=== PATIENT | male | born 1970 | race Two or more races ===

== ENCOUNTER 2017-03-18 05:56 | Observation (INO) | payer BC ==
--- NOTE | 2017-03-17 22:03 | Pre-Procedure Note/Attestation ---
Pre-Procedure Note/Attestation Complete Prior to Procedure Planned Procedure: not applicable Procedure Narrative: 1. Septoplasty 2. Uvulopalatopharyngoplasty 3. Partial reduction base of tongue stage 1. Indications for Procedure Pre-Operative Diagnosis: 1. Nasal septal deviation 2. Hypertrophied soft palate and uvula 3. Hypertrophied base of tongue. Attestation I attest that I discussed the nature of the procedure; its benefits; risks and complications; and alternatives (and the risks and benefits of such alternatives ), prior to the procedure, with the patient (or the patient's legal sales development representative). I attest that, if there was a reasonable possibility of needing a blood transfusion, the patient (or the patient's legal sales development representative) was given the [place] [facility] standardized written summary, pursuant to the [place] Blood Safety Act ([place] Health and Safety Code # 1645, as amended). I attest that I re-evaluated the patient just prior to the surgery and that there has been no change in the patient's H&P,, job # [id number]. Also medical clearance provided from outside -CÉSAR Solis Mar 17, 2017 22:03
[~2017-03-18] VITALS: Ht 203.2 cm; Wt 120.2 kg
[2017-03-18] VITALS (27 sets, daily range): BP systolic 114–255; BP diastolic 57–157
[~2017-03-18 05:56] MED LIST: Dexamethasone 4mg/ml vial IVP ONE
[2017-03-18] MEDS ORDERED: OMEGA-3100 M1 PO (06:23)
[2017-03-18] MEDS ORDERED: arnica PO (06:26)
[2017-03-18] MEDS ORDERED: cholesterol pill PO (06:26)
--- NOTE | 2017-03-18 06:30 | Pre-op HX & Phy Repo 2 SIG ---
DATE OF ADMISSION: 03/18/2017 DATE OF SURGERY: 03/18/2017 PLANNED SURGERY: Partial reduction at base of tongue, uvulopalatopharyngoplasty, and septoplasty. The patient will be staying for approximately 23 hours since he has a history of sleep apnea. PAST MEDICAL HISTORY: Significant for deviated nasal septum, sleep apnea, hypertrophy at base of tongue, in the past he had otalgia, cholesterol issues, allergic rhinitis, and low testosterone. Also, chronic sinusitis. PAST SURGICAL HISTORY: Nasal fracture with septoplasty, hand surgery x5, and rotator cuff x3. MEDICATIONS: He takes atorvastatin, Aromasin, Flonase, Concerta, Viagra or Cialis, and testosterone. ALLERGIES: He is allergic to penicillin for which he has anaphylaxis. SOCIAL HISTORY: Single, no children. Denies alcohol and drugs. 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 FAMILY HISTORY: Cardiovascular disease, diabetes type 1, and asthma. PHYSICAL EXAMINATION: VITAL SIGNS: He is 68 inches and 285 pounds. BMI 31.31. Blood pressure 120/80, temperature 98.6 degrees, pulse 74, and respiratory rate is 14, but this was on his last visit, which was his preoperative, which was on 03/08/2017. HEENT: Head: Normocephalic. Ears: Positive light reflex. Normal canals. Nose, septal deviation. Hypertrophied turbinates. Mild hypertrophied soft palate, uvula, and base of tongue. NECK: Normal. ASSESSMENT: He is a candidate for septoplasty, uvulopalatopharyngoplasty, and partial reduction of base of tongue stage PLAN: He does have Zithromax and Chatom for postoperative. He has medical clearance from his primary care doctor, Dr. Guillermo including History and Physical, EKG, and chest x-ray, which is pending. Venkat Mchugh M.D. DR: Bhavana JOB#: [id number] CC: DARRYL
[2017-03-18] MEDS ORDERED: Surgicel 4in x 8in TOPIC ONE (07:02)
[2017-03-18] MEDS ORDERED: Bupivacaine w/Epi 0.5% 30ml Vial INJ ONE (07:02)
[2017-03-18] MEDS ORDERED: Saline Nasal Gel (Ayr) NASAL ONE (07:02)
[2017-03-18] MEDS ORDERED: Cocaine 4% Vial TOPIC ONE (07:02)
[2017-03-18] MEDS ORDERED: Lidocaine 1% 10mg/ml/Epi 0.005mg/ml 30ml vial INJ ONE (07:03)
[2017-03-18] MEDS ORDERED: Zemuron 50mg/5ml Inj IV ONE (07:30)
[2017-03-18] MEDS ORDERED: LR 1000ml ONE (07:30)
[2017-03-18] MEDS ORDERED: Midazolam 2mg/2ml Inj ONE (07:30)
[2017-03-18] MEDS ORDERED: NS Irrig 1000ml ONE (07:30)
[2017-03-18] MEDS ORDERED: fentaNYL 100 mcg/2 mL IV ONE (07:30)
[2017-03-18] MEDS ORDERED: Sterile Water Irrig 1000ml IRRIG ONE (07:30)
[2017-03-18] MEDS ORDERED: Propofol 10mg/ml 20ml IV ONE (07:30)
--- NOTE | 2017-03-18 08:17 | Brief Operative Note ---
Immediate Post Operative Note Operative Note Pre-op Diagnosis: 1. Nasal septal deviation 2. Hypertrophied soft palate and uvula 3. Hypertrophied base of tongue. Procedure: 1. Septoplasty 2 Uvulopalatopharyngoplasty 3. Reduction base of tongue stage 1 Post-op Diagnosis: same as pre-op Surgeon: William Magallon Nurse Clinical: none Additional Surgeons: none Anesthesiologist: Stacey Anesthesia: general Specimen: yes - Uvula Complications: none Condition: stable Estimated Blood Loss: volume - 10 cc Packing: Stamberger nasal gel in right nostril Implant(s) used?: No CÉSAR MAGALLON Mar 18, 2017 08:17
[2017-03-18] MEDS ORDERED: AZITHROMYCIN250 MG ORAL (08:24)
[2017-03-18] MEDS ORDERED: NORCO 5-325 TA1 EAC1 ORAL (08:25)
--- NOTE | 2017-03-18 08:26 | Discharge Instructions ---
Discharge Instructions Discharge Instructions Follow up with: Dr. Magallon next week at his office-pt has appt already Diet: regular Resume Normal Activity?: No Activity: light activity Pneumonia Vaccine: pt refused vaccine Influenza Vaccine (May to Oct): pt refused vaccine Return to Work/School on: Apr 01, 2017 Special Instructions pt has printed post op instructions which we have reviewed during his pre op visit. For Surgical Patients Dressing Care: may change Contact your physician for: bleeding, pain, tenderness, redness, swelling, yellowish discharge in the op. site For Congestive Heart Failure Reminder Report to your physician any weight gain of 5 pounds or more in one week. CÉSAR MAGALLON Mar 18, 2017 08:26
[2017-03-18] MEDS ORDERED: Albuterol ud Inhalation ONE ×2 (08:58→09:07)
[2017-03-18] MEDS: Albuterol ud Inhalation HHN ONE (09:07)
[2017-03-18] MEDS ORDERED: Morphine Sulfate 2mg/ml Inj IVP PRN (09:15)
[2017-03-18] MEDS ORDERED: Ketorolac 30mg Inj IV PRN (09:15)
--- NOTE | 2017-03-18 09:17 | Anethesia Preoperative Eval ---
Anesthesia Pre-op PMH/ROS General Date of Evaluation: Mar 18, 2017 Time of Evaluation: 07:00 ASA Score: ASA 1 Mallampati Score Class I : Soft palate, uvula, fauces, pillars visible Class II: Soft palate, uvula, fauces visible Class III: Soft palate, base of uvula visible Class IV: Only hard plate visible Mallampati Classification: Class I Allergies: Coded Allergies: PENICILLINS (Verified Allergy, Severe, Anaphylaxis, 03/17/17) since childhood Anesthesia Pre-op Phys. Exam Physician Exam Last Vital Signs Date Time Temp Pulse Resp B/P Pulse Ox O2 Delivery O2 Flow Rate FiO2 03/18/17 08:30 74 18 147/70 99 Simple Mask 6.0 03/18/17 08:20 97.3 Jose Manuel Hauser MD Mar 18, 2017 09:17
--- NOTE | 2017-03-18 09:17 | Immediate Post-Op Evaluation ---
Immediate Post-Op Evalulation Immediate Post-Op Evalulation Procedure: septoplasty Date of Evaluation: Mar 18, 2017 Time of Evaluation: 09:17 Nausea: No Vomiting: No Hydration Status: adequate Given Within 1 Hr of Incision: Yes Jose Manuel Hauser MD Mar 18, 2017 09:17
[2017-03-18] MEDS ORDERED: Albuterol ud Inhalation HHN ONE (09:24)
--- NOTE | 2017-03-18 09:40 | General Progress Note ---
Progress Note Progress Note ENT post op note S: I was called about 904-pt had a code blue-PAO2 down to 70 and Bradycardia to 48-felt he could not breathe. Unsure if any ST changes. According to nurse in post op and Anest-he was bagged fro 8 minutes. Was given 2 doses of Albuterol When I arrived he was stable hemodynamically and speaking. O:Nose-minimal bleeding Fiberoptic exam of larynx-no swelling Neck: no swelling A: laryngospasm or post anesthetic. He is stable now, speaking clearly without bleeding PAO2 now is 97% on room air P: Call placed to Dr. Daniel Byrd-his PMD regarding him seeing the pt post op re S/P Code Blue-VM left for him to callme. CÉSAR MAGALLON Mar 18, 2017 09:40
--- NOTE | 2017-03-18 09:45 | Operative Note - Dictated ---
DATE OF OPERATION: 03/18/2017 SURGEON: Venkat Mchugh M.D. SCRAP DEALER: None. ANESTHESIOLOGIST: Anesthesia: Oral endotracheal as well as 10 mL a 50:50 mixture 1% lidocaine with 1:100,000 epinephrine Marcaine 0.5% with 1:200,000 epinephrine. INDICATION FOR SURGERY: The patient with sleep apnea, nasal airway obstruction, hypertrophied soft palate and base of tongue. POSTOPERATIVE DIAGNOSIS: The patient with sleep apnea, nasal airway obstruction, hypertrophied soft palate and base of tongue. FINDINGS: The patient with sleep apnea, nasal airway obstruction, hypertrophied soft palate and base of tongue. PROCEDURE: 1. Uvulopalatopharyngoplasty. 2. Revision septoplasty. 3. Partial reduction in base of tongue. TECHNIQUE: The patient prepped and draped in the usual manner via oral endotracheal anesthesia, after a time-out was performed and all concurred as to the procedures and equipments indicated. Initially a McIvor mouth gag was placed in the mouth to inject the tongue and soft palate. I then also injected the septum with the aforementioned lidocaine, Marcaine, and epinephrine mixture and placed cocaine 4 mL four nasal pledgets, 2 on either nostril. I removed the uvula with scissors, part of the soft palate and then sewed these two back together with a 4-0 plain suture. Additionally radiofrequency wave with you setting of 6 coated with saline gel each time, middle of the soft palate and then 1 cm lateral for a total of 360 each time 10 seconds. I then turned my attention to the tongue and six sticks with a radiofrequency #45, coated with saline gel each time. They were placed three on either side of the midline of the tongue within 1 cm the circumvallate papillae to 1 cm, anterior circumvallate papillae in to 2 cm anterior. I then turned my attention to the septum, which was . Phong incision was made, the septal cartilage was removed after elevating bilateral flaps. Please note, this is a revision septoplasty. The was fractured and then put back to the midline with Ryne forceps. Please note that at the end of the case, I could stick my pinky finger through both nostrils although there was a little more room on the left side than the right, but at the beginning of the case, it was difficult to get a butter knife in the right nostril and no longer was the case at the end after moving it more towards the midline. The sponge and needle count was correct. ESTIMATE BLOOD LOSS: 10 mL. COUNTS: None. DRAINS: None. The patient was awake, alert, and stable in the operating room prior to the transfer to the recovery room where he was stable as well 10 minutes later. He is to stay overnight because of his history of sleep apnea and anesthesia. I suspect that he should be able to go home in the morning without any difficulty as usually the case. He has discharge medications as Z-Marcos as he is allergic to penicillin and [place]. Venkat Mchugh M.D. DR: JULIO JOB#: [id number] CC:
--- NOTE | 2017-03-18 09:57 | General Progress Note ---
Progress Note Progress Note ENT I spoke with Dr. Daniel Byrd-he is not on staff here-he agreed fro Dr Giang to see pt whom I have spoken with and will see the pt. Pt is stable now. CÉSAR MAGALLON Mar 18, 2017 09:57
[2017-03-18] MEDS: fentaNYL 100 mcg/2 mL IV PRN ×2 (10:42→11:04)
[2017-03-18] MEDS ORDERED: Norco 5mg/325mg tab ORAL PRN (13:00)
[2017-03-18] MEDS ORDERED: Hydromorphone 0.5mg/0.5ml inj IVP PRN (13:00)
[2017-03-18] MEDS: HYDROmorphone 1mg/ml Carpuject IVP PRN ×2 (13:30→17:12)
--- NOTE | 2017-03-18 15:32 | Consultation ---
Consult Note Consult Note Last 24 Hour Vital Signs Date Time Temp Pulse Resp B/P Pulse Ox O2 Delivery O2 Flow Rate FiO2 03/18/17 12:00 97.2 80 20 126/75 99 03/18/17 11:50 97.6 03/18/17 11:30 97.6 86 21 136/79 99 Simple Mask 6.0 03/18/17 11:15 87 22 131/77 99 Simple Mask 6.0 03/18/17 11:00 80 20 127/57 98 Simple Mask 6.0 03/18/17 10:55 79 15 130/57 97 Simple Mask 6.0 03/18/17 10:40 81 19 136/71 98 Simple Mask 6.0 03/18/17 10:30 82 20 127/85 98 Simple Mask 6.0 03/18/17 10:15 82 17 130/73 100 Simple Mask 6.0 03/18/17 10:00 97 19 136/76 99 Simple Mask 6.0 03/18/17 09:50 94 22 136/76 100 Simple Mask 6.0 03/18/17 09:40 91 18 142/89 97 Simple Mask 6.0 03/18/17 09:30 96 17 159/80 97 Simple Mask 10.0 03/18/17 09:20 92 16 160/91 97 Simple Mask 10.0 03/18/17 09:10 97 16 151/101 98 Simple Mask 10.0 03/18/17 09:00 106 22 174/97 96 Non-Rebreather 10.0 03/18/17 08:50 106 16 184/102 91 Non-Rebreather 10.0 03/18/17 08:48 106 18 182/157 94 Non-Rebreather 10.0 03/18/17 08:46 100 18 255/155 89 Ambu-Bag 15.0 03/18/17 08:41 48 18 184/128 68 Ambu-Bag 15.0 03/18/17 08:40 84 10 160/90 91 Simple Mask 6.0 03/18/17 08:30 74 18 147/70 99 Simple Mask 6.0 03/18/17 08:25 71 17 135/65 99 Simple Mask 6.0 03/18/17 08:20 97.3 64 15 133/63 96 Simple Mask 6.0 03/18/17 06:30 97.5 76 17 140/80 97 Room Air consult dictated Assessment/Plan Eric Giang MD Mar 18, 2017 15:32
[2017-03-18] MEDS: Azithromycin 250mg tab ORAL SCH (17:11)
[2017-03-19 03:57] VITALS: BP 119/71
[2017-03-19 08:00] VITALS: BP 116/69
[2017-03-19] MEDS: Azithromycin 250mg tab ORAL SCH (08:17)
[2017-03-19 08:43] LABS: BASOPHILS % (AUTO) 0.3 % (0.0-2.0); LYMPHOCYTES % (AUTO) 13.7 % (20.0-45.0); MEAN CORPUSCULAR HEMOGLOBIN 31.9 PG (27.0-31.0); MEAN CORPUSCULAR HGB CONC 34.5 G/DL (32.0-36.0); MEAN CORPUSCULAR VOLUME 92 FL (80-99); MEAN PLATELET VOLUME 10.4 FL (6.5-10.1); MONOCYTES % (AUTO) 3.9 % (1.0-10.0); NEUTROPHILS % (AUTO) 82.2 % (45.0-75.0); PLATELET COUNT 203 K/UL (150-450); RED BLOOD COUNT 5.17 M/UL (4.70-6.10); RED CELL DISTRIBUTION WIDTH 12.4 % (11.6-14.8); WHITE BLOOD COUNT 8.7 K/UL (4.8-10.8)
[2017-03-19 08:51] LABS: TROPONIN I < 0.30 ng/mL (<=0.30)
[2017-03-19 09:05] LABS: ALBUMIN/GLOBULIN RATIO 1.7 (1.0-2.7); CALCIUM 9.7 mg/dL (8.6-10.2); CREATININE 1.3 mg/dL (0.7-1.2); GLOMERULAR FILTRATION RATE 59.4 mL/min (>60); MAGNESIUM 2.1 mg/dL (1.7-2.5); PHOSPHORUS 4.9 mg/dL (2.5-4.8); POTASSIUM 4.8 mEQ/L (3.4-4.9); TOTAL PROTEIN 6.6 g/dL (6.6-8.7)
--- NOTE | 2017-03-19 10:58 | Discharge Summary ---
Discharge Summary Hospital Course Date of Admission Mar 18, 2017 at 09:16 Date of Discharge Admitting Diagnosis HPI Víctor, Ed is a 46 year old male who was admitted on Mar 18, 2017 at 09:16 for Hypertrhophy Basic Tongue,Septal Deviation Hospital Course Last 24 Hour Vital Signs Date Time Temp Pulse Resp B/P Pulse Ox O2 Delivery O2 Flow Rate FiO2 03/19/17 08:00 87 03/19/17 08:00 96.8 90 21 116/69 96 Room Air 03/19/17 04:02 85 03/19/17 03:57 98.1 78 19 119/71 95 Room Air 03/18/17 23:54 98.6 76 20 114/66 97 Room Air 03/18/17 23:35 74 03/18/17 20:00 Simple Mask 6.0 45 03/18/17 20:00 97 Simple Mask 6.0 45 03/18/17 19:59 98.8 89 21 133/81 99 Nasal Cannula 03/18/17 19:12 72 03/18/17 17:25 Simple Mask 7.0 55 03/18/17 17:25 95 Simple Mask 7.0 55 03/18/17 16:00 97.3 82 22 120/72 98 Room Air 03/18/17 16:00 76 03/18/17 12:00 82 03/18/17 12:00 97.2 80 20 126/75 99 03/18/17 11:50 97.6 03/18/17 11:30 97.6 86 21 136/79 99 Simple Mask 6.0 03/18/17 11:15 87 22 131/77 99 Simple Mask 6.0 03/18/17 11:00 80 20 127/57 98 Simple Mask 6.0 Physical Exam General: No acute distress, awake and alert HEENT: NCAT, sclera anicteric, PERRL, EOMI. Nasal packing intact. Neck: Supple, no significant jugular venous distention, Lungs: Good inspiratory effort, clear to auscultation bilaterally, no Wheeze or Rales. Heart: Regular rate and rhythm, normal S1/S2, no murmurs. Abdomen: soft, nontender, nondistended. Normoactive bowel sounds. Extremities: No Cyanosis , clubbing or edema. Neuro: A&O x 3, Able to move all extremities Skin: warm, no rashes or lesions Psych: Normal mood and affect Plan: Discharge Discharge Disposition Patient was discharged to home. Discharge Diagnoses: Discharge Instructions Discharge Instructions Follow up with: Dr. Mchugh next week at his office-pt has appt already Activity: light activity Pneumonia Vaccine: pt refused vaccine Influenza Vaccine (May to Oct): pt refused vaccine May Return to Work/School On: Apr 01, 2017 For Surgical Patients Dressing Care: may change Contact your physician for: bleeding, pain, tenderness, redness, swelling, yellowish discharge in the op. site Eric Giang MD Mar 19, 2017 10:58
[2017-03-19] MEDS ORDERED: Metoclopramide 10mg/2ml Inj IVP ONE (11:00)
--- NOTE | 2017-03-19 11:30 | Consultation ---
DATE OF CONSULTATION: 03/18/2017 NOTE: INCOMPLETE DICTATION CONSULTING PHYSICIAN: Eric Giang M.D. REQUESTING PHYSICIAN: Venkat Mchugh M.D. REASON FOR CONSULTATION: Postoperative complications with Code Blue. HISTORY OF PRESENT ILLNESS: This is a 46-year-old gentleman with a past medical history significant for obstructive sleep apnea as well as dyslipidemia, hypogonadism with history of nasal fracture with septoplasty, hand surgery x5, and rotator cuff surgery x3, history of deviated nasal septum, hypertrophy of the base of the tongue, allergic rhinitis, and chronic sinusitis. The patient presented to the hospital for partial reduction of the base of the tongue with uvulopalatopharyngoplasty and septoplasty. Postoperatively, it is complicated with the patient becomes unresponsive and Code Blue due to the desaturation as well as bradycardia. The patient was subsequently admitted to the hospital for further evaluation and by Dr. Venkat Mchugh and Internal Medicine consultation and monitoring the patient. PAST MEDICAL HISTORY/PAST SURGICAL HISTORY: As above. He has hypogonadism, dyslipidemia, deviated nasal septum, obstructive sleep apnea, hypertrophic at the base of the tongue with history of otalgia, allergic rhinitis, hypogonadism, nasal fracture with septoplasty, hand surgery x5, and rotator cuff surgery x2. MEDICATIONS: Significant for atorvastatin, Aromasin, Flonase, Concerta, Viagra, Cialis, testosterone injection, and omega-3. ALLERGIES: Allergic to penicillin with anaphylaxis. SOCIAL HISTORY: The patient is single. No children. Denies any alcohol or substance abuse. 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 He is a social drinker. No substance. FAMILY HISTORY: Cardiovascular disease, diabetic type 1, as well as asthma. REVIEW OF SYSTEMS: Unremarkable. Denies any chest pain. Complaining of sore throat. Denies any hemoptysis or hematochezia. Denies any bright red blood per rectum. Denies any loss of consciousness. Denies any suicidal or homicidal ideation. PHYSICAL EXAMINATION: VITAL SIGNS: At this time, he has a temperature of 97.3, pulse of 80, respirations 20, and blood pressure 126/75. GENERAL: It is noted that given the patient is on a non-breathable and Ambu bag, blood pressure was as high as 184/128 with a heart rate of 48 and after that it was noted that the blood pressure slowly declined to the 130 systolic. HEAD AND NECK: Pupils are reactive to light. Anicteric. Nasal cavity has a bandage. Throat, a surgical incision was noted with no signs of complication or bleeding. Neck was supple. No JVD. LUNGS: Good air entry. No wheezing or rales. HEART: S1 and S2. Regular rhythm. No gallops. ABDOMEN: Soft, nondistended, and nontender. Mildly obese. EXTREMITIES: No cyanosis, clubbing, or edema. NEUROLOGIC: Cranial nerves II through XII are grossly intact. The patient is moving all the extremities, spontaneously. Gait was not assessed. Eric Giang M.D. DR: CHAPIN JOB#: [id number] CC:
--- NOTE | 2017-03-19 13:15 | Consultation ---
DATE OF CONSULTATION: 03/18/2017 CONSULTING PHYSICIAN: Eric Giang M.D. REQUESTING PHYSICIAN: Venkat Mchugh M.D. REASON FOR CONSULTATION: Cardiac stress arrest, Code Blue, postop. HISTORY OF PRESENT ILLNESS: This is a 46-year-old gentleman with a past medical history significant for nasal fracture with septoplasty, history are hand surgery x5, rotator cuff surgery x3, history of dyslipidemia, deviated nasal septum, obstructive sleep apnea with hypertrophic at the base of the tongue. The patient had otalgia, allergic rhinitis, hypogonadism, and chronic sinusitis who was presented to the hospital as per request by Dr. Venkat Mchugh, ENT for partial reduction of the base of the tongue with the uvulopalatopharyngoplasty with septoplasty. The patient was brought to the surgery was uneventful. The patient underwent through septoplasty with uvuloplasty with partial reduction of the base of the tongue. The patient was discharged to the recovery room. While he was in the recovery room was noted to be bradycardic and hypoxemic. The patient's Code Blue was called. The patient was given nebulizer treatment with albuterol. His status gradually improved and subsequently was admitted to the hospital for observation and I was consulted as a medicine consultation per the request per Dr. Venkat Mchugh for further evaluation and therapy. PAST MEDICAL HISTORY/PAST SURGICAL HISTORY: As above. History of hypogonadism, septoplasty due to the nasal fracture, hand surgery x5, rotator cuff x3. The patient had obstructive sleep apnea, hypertrophic at the base of the tongue, otalgia, and allergic rhinitis with chronic sinusitis. MEDICATIONS: Medication at home significant for atorvastatin, Aromasin, Flonase, Concerta, Viagra, Cialis, and testosterone injection. ALLERGIES: Allergic to penicillin with anaphylaxis. SOCIAL HISTORY: The patient denies any smoking or drugs. Socially drinks. No substance. He is single. No children. 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 FAMILY HISTORY: Significant for diabetes as well as cardiovascular disease and asthma. REVIEW OF SYSTEMS: Mostly as above. Denies any dysuria or frequency. Complained about throat pain. Denies any hemoptysis or hematochezia. Denies any suicidal or homicidal ideation. Denies any loss of consciousness. Denies any double vision. PHYSICAL EXAMINATION: VITAL SIGNS: At this time is significant for temperature of 97.2, pulse of 80, respirations 20, and blood pressure 126/75. GENERAL: The patient is awake, responsive, in no acute distress. HEAD AND NECK: Pupils are reactive to light. Extraocular movements are intact. Nasal packing was noted on the left side of the nasal cavity. Throat has an ecchymosis was noted and a surgical site. No signs of infection. No pus discharge. No bloody discharge. Neck was supple. No JVD. LUNGS: Good air entry. No wheezing or rales. HEART: S1 and S2. Regular rhythm. No gallops. ABDOMEN: Soft, nondistended, and nontender. Positive bowel sounds. EXTREMITIES: No cyanosis, clubbing, or edema. NEUROLOGIC: Cranial nerves II through XII are grossly intact. Motor is 5/5 in all extremities. LABORATORY DATA: Labs are not performed. The patient had a monitor rhythm and it showed a sinus rhythm with a ventricular rate of 72, WI interval 0.16, and QRS is 0.08. No signs of ST elevation was identified. ASSESSMENT: 1. Desaturation with bradycardia, status post Code Blue. 2. Dyslipidemia. 3. Hypogonadism. 4. Obstructive sleep apnea. 5. History of nasal septum with a nasal fracture status post septoplasty. 6. Obstructive sleep apnea. PLAN: We will consider follow up with Dr. Venkat Mchugh recommendation at this time. The patient is admitted to Monitor Unit. We will follow up with the laboratory in the morning and EKG. If the patient's status improved, considered to be discharge in the morning. Eric Giang M.D. DR: CHAPIN JOB#: [id number] CC: DARRYL
--- NOTE | 2017-03-20 04:15 | Discharge Summary ---
DATE OF ADMISSION: 03/18/2017 DATE OF DISCHARGE: 03/19/2017 HISTORY AND HOSPITAL COURSE: This is a 46 years old gentleman with past medical history significant for dyslipidemia, hypogonadism, history of nasal fracture with septoplasty, obstructive sleep apnea with hypertrophic at the base of the tongue, who was presented to the hospital as per request by Dr. Venkat Mchugh for partial reduction of the base of the tongue as well as uvulopalatopharyngoplasty as well as septoplasty. The patient tolerated the procedure well. However, postoperatively was noted to be desaturating, bradycardic, and subsequently the patient was admitted to the hospital. Shortly after initial evaluation on the floor, the patient was complaining about throat pain and the patient had no complications overnight. His status improved and subsequently the patient was discharged home today to be followed up with Dr. Venkat Mchugh as outpatient within two to three days. FINAL DIAGNOSES: 1. Bradycardia and hypoxemia possible due to the anesthesia reaction. 2. Septoplasty with uvulopharyngoplasty and partial reduction of the base of the tongue for the treatment of obstructive sleep apnea. 3. Dyslipidemia. 4. Hypogonadism. MEDICATIONS ON DISCHARGE: Continue discharge medication list. ACTIVITY: As tolerated. DIET: Diet would be clear liquid diet. Advance as tolerated per Dr. Venkat Mchugh. Eric Giang M.D. DR: SOFIA JOB#: [id number] CC:
[2017-03-23 08:33] VITALS: BP 128/76
--- NOTE | 2017-03-23 08:33 | 48 Hour Post Anesthesia Eval ---
Post Anesthesia Evaluation Procedure: septoplasty Date of Evaluation: Mar 19, 2017 Time of Evaluation: 11:15 Blood Pressure Systolic: 128 0: 76 Pulse Rate: 74 Respiratory Rate: 22 Temperature (Fahrenheit): 97.6 O2 Sat by Pulse Oximetry: 98 Airway: patent Nausea: No Vomiting: No Pain Intensity: 2 Hydration Status: adequate Cardiopulmonary Status: stable Mental Status/LOC: patient returned to baseline Follow-up Care/Observations: n/a Post-Anesthesia Complications: none Follow-up care needed: ready to discharge SIMBA ORTIZ M.D. Mar 23, 2017 08:33
--- NOTE | 2017-03-23 18:17 | Cardiology Report ---
APPROVED REPORT EKG Measurement Heart [id number] Normal sinus rhythm Nonspecific T wave abnormality Abnormal ECG
== END 2017-03-19 11:54 | disposition home or self-care (01) ==
LOC: SUR 05:56 → SDSOVERFLO 09:16 → 2E 12:01
DX: J34.2 Deviated nasal septum (principal); K14.8 Other diseases of tongue; I97.89 Other postprocedural complications and disorders of the circulatory system, not elsewhere classified; I49.8 Other specified cardiac arrhythmias; J95.89 Other postprocedural complications and disorders of respiratory system, not elsewhere classified; R09.02 Hypoxemia; Y65.8 Other specified misadventures during surgical and medical care; Y92.238 Other place in hospital as the place of occurrence of the external cause; G47.33 Obstructive sleep apnea (adult) (pediatric); J30.9 Allergic rhinitis, unspecified; J32.9 Chronic sinusitis, unspecified; E29.1 Testicular hypofunction; E78.5 Hyperlipidemia, unspecified; Z88.0 Allergy status to penicillin
CPT/HCPCS: 30520; 36415; 41530; 42145; 80053; 83735; 84100; 84484; 85025; 93005; 94760; 96374; 96376; G0378; J0690; J1170; J2250; J2704; J2765; J3010; J7120; J8540; 94003; 94150

== ENCOUNTER 2017-05-18 05:14 | Day surgery (SDC) | payer BC ==
--- NOTE | 2017-05-17 19:16 | Pre-Procedure Note/Attestation ---
Pre-Procedure Note/Attestation Complete Prior to Procedure Planned Procedure: bilateral Procedure Narrative: Partial reduction Hypertrophied base of tongue and soft palate-both stage 2 Indications for Procedure Pre-Operative Diagnosis: Hypertrophied base of tongue and soft palate Attestation I attest that I discussed the nature of the procedure; its benefits; risks and complications; and alternatives (and the risks and benefits of such alternatives ), prior to the procedure, with the patient (or the patient's legal sales representative business courses). I attest that, if there was a reasonable possibility of needing a blood transfusion, the patient (or the patient's legal sales representative business courses) was given the [facility] standardized written summary, pursuant to the [place] Blood Safety Act ([place] Health and Safety Code # 1645, as amended). I attest that I re-evaluated the patient just prior to the surgery and that there has been no change in the patient's H&P, CÉSAR MAGALLON May 17, 2017 19:16
[~2017-05-18] VITALS: Ht 203.2 cm; Wt 121.6 kg
[2017-05-18] VITALS (10 sets, daily range): BP systolic 132–151; BP diastolic 46–78
--- NOTE | 2017-05-18 00:45 | Pre-op HX & Phy Repo 2 SIG ---
DATE OF ADMISSION: 05/18/2017 He has surgery on 05/18/2017. History Of Present Illness: The patient is a 47-year-old male, who is having partial reduction of base of tongue and soft palate stage II tomorrow. He had the first one in February. He did well except he had a difficult time waking up. He was violent and very anxious in the recovery room. After a few hours, he settled down, but this needs to be noted prior to anesthesia. So, we gave him as little as possible and controlled him coming out of this. He will not be staying overnight this time as that he had no true respiratory issues last time, although we thought he did, he was speaking through the whole process and had no significant drop of oxygen except initially postop when he got very anxious. He did well with his previous septoplasty and partial reduction of base of tongue and soft palate. Past Surgical History: Nasal fracture and then the surgeries I did in February 2017 already noted above, hand surgery x5, rotator cuff x3. Medications: He takes atorvastatin, Flonase, Concerta, Viagra, Cialis, and testosterone. Allergies: He is allergic to penicillin for which he has anaphylaxis. PHYSICAL EXAMINATION: Vital Signs: He is 6 feet 6 inches, 285 pounds, and BMI 31.31. Blood pressure 120/80 when I saw him in the office last week, temperature 98.7 degrees, pulse 70, and respiratory rate 13. HEENT: Head, normocephalic. Eyes, PERRLA, EOMI. Lips, tongue, pharynx, and neck normal. Mouth, the tongue is still enlarged, but smaller than it was before and the soft palate is stiffer, which is there and is improving his sleep apnea. He now states he sleeps throughout the night. Assessment: He is a candidate for partial reduction of base of tongue and soft palate. Plan: I have discussed the risks, benefits, and alternatives with him regarding the surgery noted above. Venkat Mchugh M.D. DR: Bhavana JOB#: [id number] CC:
[~2017-05-18 05:14] MED LIST changes: +AZITHROMYCIN250 MG ORAL; -Dexamethasone 4mg/ml vial IVP ONE; +NORCO 5-325 TA1 EAC1 ORAL; +OMEGA-3100 M1 PO; +arnica PO; +cholesterol pill PO
[2017-05-18] MEDS ORDERED: Dexamethasone 4mg/ml vial IVP ONE (06:00)
[2017-05-18] MEDS ORDERED: Lidocaine 1% 10mg/ml/Epi 0.005mg/ml 10ml vial ONE (06:52)
[2017-05-18] MEDS ORDERED: Bupivacaine w/Epi 0.5% 30ml Vial INJ ONE (06:52)
[2017-05-18] MEDS ORDERED: LR 1000ml ONE (07:30)
[2017-05-18] MEDS ORDERED: NS Irrig 1000ml ONE (07:30)
[2017-05-18] MEDS ORDERED: Midazolam 2mg/2ml Inj ONE (07:30)
[2017-05-18] MEDS ORDERED: Lidocaine 1% MPF 10mg/ml 5ml ONE (07:30)
[2017-05-18] MEDS ORDERED: Propofol 200mg/20ml IV ONE (07:30)
[2017-05-18] MEDS ORDERED: Metoclopramide 10mg/2ml Inj IVP PRN (07:30)
[2017-05-18] MEDS ORDERED: Meperidine 25mg/0.5ml Inj (FOR RIGORS ONLY) IV PRN (07:30)
[2017-05-18] MEDS ORDERED: Metoclopramide 10mg/2ml Inj ONE (07:30)
[2017-05-18] MEDS ORDERED: Dexamethasone 4mg/ml vial ONE (07:30)
[2017-05-18] MEDS ORDERED: fentaNYL 100 mcg/2 mL IV ONE (07:30)
[2017-05-18] MEDS ORDERED: fentaNYL 100 mcg/2 mL IV PRN (07:30)
--- NOTE | 2017-05-18 07:59 | Brief Operative Note ---
Immediate Post Operative Note Operative Note Pre-op Diagnosis: Hypertrophied base of tongue and soft palate Procedure: Stage 2 partial reduction base of tongue and soft palate Post-op Diagnosis: same as pre-op Surgeon: William Magallon Extrusion Press Adjuster: none Additional Surgeons: none Anesthesiologist: MD Andi Anesthesia: general Specimen: none Complications: none Condition: stable Fluids: [id number] Estimated Blood Loss: minimal Drains: none Packing: none Implant(s) used?: No CÉSAR MAGALLON May 18, 2017 07:59
[2017-05-18] MEDS ORDERED: Acetaminophen (Non formulary) 1,000 MG/100 ML ML IV ONE (08:00)
--- NOTE | 2017-05-18 08:02 | Discharge Instructions ---
Discharge Instructions Discharge Instructions Follow up with: Already scheduled week of Jun 02, 2017 Diet: regular Resume Normal Activity?: Yes Activity: resume normal activities Pneumonia Vaccine: pt refused vaccine Influenza Vaccine (May to Oct): pt refused vaccine Follow Up Orders pt has printed instructions given to him at pre op visit in my office last week. Return to Work/School on: Jun 01, 2017 Special Instructions none For Congestive Heart Failure Reminder Report to your physician any weight gain of 5 pounds or more in one week. CÉSAR MAGALLON May 18, 2017 08:02
--- NOTE | 2017-05-18 08:14 | Immediate Post-Op Evaluation ---
Immediate Post-Op Evalulation Immediate Post-Op Evalulation Procedure: partial reduction of hypertropid tongue Date of Evaluation: May 18, 2017 Time of Evaluation: 08:00 IV Fluids: 600 Blood Products: 3 Blood Pressure Systolic: 151 Blood Pressure Diastolic: 81 Pulse Rate: 80 Respiratory Rate: 14 O2 Sat by Pulse Oximetry: 100 Temperature (Fahrenheit): 98.0 Nausea: No Vomiting: No Complications none; pt did not have emergence delirium. fully alert and awake and following commands Patient Status: awake, reacts, patent Hydration Status: adequate Drug: cipro Given Within 1 Hr of Incision: Yes Time Given: 07:40 KELLEN CASTILLO CRNA May 18, 2017 08:14
--- NOTE | 2017-05-18 08:16 | Anethesia Preoperative Eval ---
Anesthesia Pre-op PMH/ROS General Date of Evaluation: May 18, 2017 Time of Evaluation: 07:30 Anesthesiologist: peña ASA Score: ASA 2 Mallampati Score Class I : Soft palate, uvula, fauces, pillars visible Class II: Soft palate, uvula, fauces visible Class III: Soft palate, base of uvula visible Class IV: Only hard plate visible Mallampati Classification: Class III Surgeon: abisai Diagnosis: hypertropied base of tongue Surgical Procedure: partial reduction of hypertropied base of tongue and soft palate Anesthesia History: emergence delirium Family History: no anesthesia problems Allergies: Coded Allergies: PENICILLINS (Verified Allergy, Severe, Anaphylaxis, 03/17/17) since childhood Medications: see eMAR Past Medical History Cardiovascular: Denies: HTN, CAD, NM, valve dz, arrhythmia, other Pulmonary: Reports: JAMEL Gastrointestinal/Genitourinary: Denies: GERD, CRI, ESRD, other Neurologic/Psychiatric: Denies: dementia, CVA, depression/anxiety, TIA, other Endocrine: Denies: DM, hypothyroidism, steroids, other Hematology/Immune: Denies: anemia, DVT, bleeding disorder, other Musculoskeletal/Integumentary: Denies: OA, RA, DJD, DDD, edema, other PSxH Narrative: rotator cuff; septoplasty Anesthesia Pre-op Phys. Exam Physician Exam Last Vital Signs Date Time Temp Pulse Resp B/P (MAP) Pulse Ox O2 Delivery O2 Flow Rate FiO2 05/18/17 05:56 98.1 77 20 134/72 96 Room Air Constitutional: NAD Neurologic: CN 2-12 intact Cardiovascular: RRR Respiratory: CTA Gastrointestinal: S/NT/ND Airway Exam Mallampati Classification 3 Mallampati Score: Class III MO: full ROM: full Dentures: no upper, no lower Anesthesia Pre-op A/P Studies Pre-op Studies: EKG Risk Assessment & Plan Plan: general lma Status Change Before Surgery: No Pre-Antibiotics Drug: cipo Given Within 1 Hr of Incision: Yes Time Given: 07:40 KELLEN CATSILLO CRNA May 18, 2017 08:16
--- NOTE | 2017-05-18 08:18 | 48 Hour Post Anesthesia Eval ---
Post Anesthesia Evaluation Procedure: partial reduction of hypertropid tongue Date of Evaluation: May 18, 2017 Time of Evaluation: 08:17 Blood Pressure Systolic: 134 0: 67 Pulse Rate: 71 Respiratory Rate: 14 Temperature (Fahrenheit): 98.1 Airway: patent Nausea: No Vomiting: No Hydration Status: adequate Cardiopulmonary Status: stable Mental Status/LOC: patient returned to baseline Follow-up Care/Observations: per surgery Post-Anesthesia Complications: none Follow-up care needed: N/A KELLEN CASTILLO CRNA May 18, 2017 08:18
--- NOTE | 2017-05-18 20:30 | Operative Note - Dictated ---
DATE OF OPERATION: 05/18/2017 SURGEON: Venkat Mchugh M.D. TOOL AND DIE MAKER: None. ANESTHESIOLOGIST: Dr. Escamilla. Anesthesia: LMA general anesthesia and 10 mL of 1% lidocaine with 1/100,000 epinephrine Indication For Surgery: Stage 2 partial reduction base of tongue and soft palate. Preoperative Diagnoses: Hypertrophied soft palate, sleep apnea, hypertrophied base of tongue. Postoperative Diagnoses: Hypertrophied soft palate, sleep apnea, hypertrophied base of tongue. Findings: Hypertrophied soft palate, sleep apnea, hypertrophied base of tongue. Procedure: Partial reduction of base of tongue, stage 2 and partial reduction of soft palate, stage 2. Technique: The patient prepped and draped in the usual manner, LMA general anesthesia, after time-out was performed, and all concurred as to procedure and equipment to be done. I injected the tongue and soft palate with a total of 10 mL of 1% lidocaine with 1:100,000 epinephrine. I then proceeded to place the radiofrequency wand on a setting of 6 covering with saline gel and 10-second sticks in the soft palate midline and then 1 cm on either side of the midline. I then proceeded to the tongue for six sticks, same procedure, 2 cm lateral to the midline of the tongue, 1 cm behind the circumvallate papillae, 1 cm in front to the circumvallate papillae, and 2 cm in front of the circumvallate papillae on either side. ESTIMATED BLOOD LOSS: A 2 mL. COMPLICATIONS: None. DRAINS: None. COUNT: Sponge and needle count was correct. The patient was stable in recovery room. Please note the last time, he woke up very disoriented and afraid. At this time, he had no issues and seemed to be doing well 15-20 minutes later in the recovery room. Tongue moved in all directions. Venkat Mchugh M.D. DR: SPENCER JOB#: [id number] CC: DARRYL
== END 2017-05-18 10:15 | disposition home or self-care (01) ==
LOC: SUR 05:14
DX: K14.8 Other diseases of tongue (principal); G47.30 Sleep apnea, unspecified; K13.79 Other lesions of oral mucosa; Z88.0 Allergy status to penicillin
CPT/HCPCS: 41530; 42160; J0744; J1100; J2250; J2405; J2704; J2765; J3010; J7120; 94003; 94150